=== PATIENT | male | born 1950 | race Caucasian/White ===

== ENCOUNTER 2016-12-05 07:53 | Outpatient (CLI) | payer OTHER ==
--- NOTE | 2016-12-05 12:13 | DIAGNOSTIC IMAGING REPORT ---
PROCEDURE: US VENOUS - BILATERAL EXT INDICATION: NON HEALING WOUNDS TECHNIQUE: Color Doppler duplex imaging of the deep and superficial venous system without and with compression. COMPARISON: Bilateral lower extremity venous duplex ultrasound 10/28/2012. FINDINGS: RIGHT LOWER EXTREMITY: Deep and superficial venous system of the right lower extremity is within normal limits. There is no evidence of deep vein thrombosis or superficial thrombophlebitis. LEFT LOWER EXTREMITY: Deep and superficial venous system of the left lower extremity is within normal limits. There is no evidence of deep vein thrombosis or superficial thrombophlebitis. IMPRESSION: 1. Negative venous ultrasound of the bilateral lower extremities.
--- NOTE | 2016-12-05 12:30 | DIAGNOSTIC IMAGING REPORT ---
PROCEDURE: US ART LOWER EXT WITH LILIAN-B/L INDICATION: NON HEALING WOUNDS TECHNIQUE: Preexercise ABIs were performed. The patient was unable to exercise. Color Doppler duplex imaging of the lower extremities was performed.. COMPARISON: None. FINDINGS: Technically difficult examination secondary to patient's body habitus. RIGHT LOWER EXTREMITY: ABIs: Resting ABIs: Posterior tibial: 0.5 and dorsalis pedis 0.90. VESSELS: Mild atherosclerosis. Normal triphasic wave form from the common femoral to the popliteal artery and biphasic wave form of the posterior tibial and dorsalis pedis arteries. Anterior tibial artery was not visualized. RIGHT LOWER EXTREMITY PEAK SYSTOLIC VELOCITIES: Common femoral artery: 110 cm/second. Profunda femoral artery: 77 cm/second. Proximal superficial femoral artery: 112 cm/second. Mid superficial femoral artery: 90 cm/second. Distal superficial femoral artery: 102 cm/second. Popliteal artery: 93 cm/second. Proximal posterior tibial artery: 87 cm/second. Dorsalis pedis artery: 44 cm/second. LEFT LOWER EXTREMITY: ABIs: Resting ABIs: Posterior tibial 0.64 and dorsalis pedis 0.97. VESSELS: Diffuse atherosclerosis. Normal triphasic wave form from the common femoral to the anterior tibial artery. Biphasic wave form of the posterior tibial and dorsalis pedis arteries. LEFT LOWER EXTREMITY PEAK SYSTOLIC VELOCITIES: . Common femoral artery: 85 cm/second. Profunda femoral artery: 55 cm/second. Proximal superficial femoral artery: 112 cm/second. Mid superficial femoral artery: 112 cm/second. Distal superficial femoral artery: 91 cm/second. Popliteal artery: 83 cm/second. Proximal posterior tibial artery: 45 cm/second. Proximal anterior tibial artery: 46 cm/second. Dorsalis pedis artery: 56 cm/second. IMPRESSION: 1. Technically difficult examination secondary to the patient's body habitus 2. Left lower extremity: Diffuse atherosclerosis without evidence of resting arterial insufficiency. There is trifurcation disease but no evidence of high-grade stenosis. 3. Mild atherosclerosis without evidence of resting arterial insufficiency. Anterior tibial artery was not visualized.
== END 2016-12-05 23:00 ==
LOC: US SRH 07:53
DX: I70.202 Unspecified atherosclerosis of native arteries of extremities, left leg (principal)

== ENCOUNTER 2017-02-25 16:10 | Emergency (ER) | payer OTHER ==
--- NOTE | 2017-02-25 18:08 | ED ORDER SUMMARY ---
..... Patient: ARISTEO MUÑOZ OrderSheet [facility] VisitID: [id number] [place] [address] 67y, M Registration Date/Time: 02/25/2017 ORDER SHEET Weight: 106.5 kg (stated) Allergies: Codeine, Demerol, Doxycycline Monohydrate, Penicillins GENERAL ORDERS: Abdomen 1V Upright Urgent (16:29 02/25/2017 HBivens A.R.N.P.) (Ack 16:35 AMcQuoid ER Tech1) (17:41 Renee R.N.) MEDICATION ORDERS: Glycerin (Adult) [place] 1 suppository (NOW) (16:48 02/25/2017 HBivens A.R.N.P.) (16:49 Renee R.N.) IV FLUIDS: ORDER SHEET NOTES: [Electronically signed by Nan Smith R.N. (18:21 02/25/2017)] [Electronically signed by Emmie Gooden.R.N.P. (18:48 02/25/2017)] [Electronically locked/signed by Nan Smith R.N. (18:21 02/25/2017)]
--- NOTE | 2017-02-25 18:08 | ED NURSING NOTES ---
Clinical Report - Nurses [facility] [place] [address] 02/25/2017 16:09 Patient: ARISTEO MUÑOZ TRIAGE Triage time 16:15. Acuity: LEVEL 4. Chief Complaint: ABDOMINAL PAIN and NAUSEA and (unable to have a bowel movement). Alert. No acute distress. SEPSIS SCREEN: Sepsis Screen. Negative (no infection suspected/documented). HERMINIO COMA SCORE: Herminio Coma Scale: 15- eyes open spontaneously (4); best verbal response- oriented x 4 (5); best motor response- obeys commands (6). --16:21 Nan Smith R.N. 16:14 02/25/17. BP: 142/72. HR: 90. RR: 18. O2 saturation: 94%. Temp: 98.1 F. Pain level now 8/10. --16:21 Nan Smith R.N. Weight: 106.5 kg stated. Height/Length: 72 inches Per Patient. BMI: 31.9. --16:16 Nan Smith R.N. Medications Albuterol Sulfate Inhalation 2 puffs, PRN. Combivent Inhalation 2 puffs, 4x a day. LORazepam Oral 1 mg, PRN. Nitroglycerin Translingual, as needed. --16:18 Nan Smith R.N. Lasix 40mg daily. --16:19 Nan Smith R.N. OxyCODONE HCl Oral 5 mg, as needed (maxd dose x4 daily). --16:19 Nan Smith R.N. ROPINIRole HCl Oral (Tablet 0.25 mg) 1 tablet, PRN. --16:20 Nan Smith R.N. Allergies Codeine. Demerol. Doxycycline Monohydrate. Penicillins. --16:18 Nan Smith R.N. History Arrived by EMS. Historian: patient. Unaccompanied. Primary physician (Dr. Harris). This started today. 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 See EMS report. PAST MEDICAL HX: Immunizations: up-to-date. SOCIAL HX: Light tobacco smoker (cigarette)- less than 1/2 a pack per day. Alcohol use. Patient is a recovering alcoholic. (pt. states he has not had a drink for 20 years). No drug use. No recent travel. No known contact with a sick individual. ABUSE ASSESSMENT: Abuse assessment: The patient was asked "Do you feel safe in your home?" and "Has anyone hurt you or threatened to hurt you?". No report of abuse. SELF HARM ASSESSMENT: A self harm assessment was performed. The patient answered "no" to the question "Do you have thoughts of harming or killing yourself?" and "Have you recently had thoughts about harming or killing others?". NUTRITIONAL RISK ASSESSMENT: The nutritional risk assessment revealed no deficiencies. FUNCTIONAL ASSESSMENT: Functional assessment: no impairments noted. LEARNING NEEDS ASSESSMENT: The learning needs assessment revealed no barriers. --16:21 Nan Smith R.N. PROBLEMS: Lifestyle / Substance Problems. Pedal Edema. Cellulitis. Lung Disease. Fall. Laceration. Angina. Chronic Back Pain. COPD - Chronic Obstructive Pulmonary Disease. --16:20 Nan Smith R.N. Seizure Disorder. --16:21 Nan Smith R.N. ADDITIONAL SURGERIES: Adenoidectomy. Esophageal surgery . Left wrist surgery . Tonsillectomy. --16:20 Nan Smith R.N. Interventions ID and allergy band on patient. Transported via stretcher. --16:21 Nan Smith R.N. PHYSICAL ASSESSMENT To room via stretcher. ( last normal BM: 1 week ago.). GENERAL / NEURO / PSYCH: Alert. Appears in no acute distress. HEENT: Mucous membranes are pink. RESPIRATORY: Respirations not labored. CVS: Capillary refill less than 2 seconds. GI / : Abdomen soft. Abdominal tenderness diffusely. SKIN: Skin is warm and dry. --16:22 Nan Smith R.N. NURSING PROGRESS NOTES Patient gowned. Head of bed elevated. Two patient identifiers checked. Call light placed in reach. Side rails up x 2. Bed placed in lowest position. Brakes of bed on. Patient ready for evaluation- chart flagged. --16:22 Nan Smith R.N. 16:48 02/25/2017 GLYCERIN (ADULT) [place] 1 Suppository given. Allergies verified and confirmed 5 rights. --16:49 Nan Smith R.N. Computer Programming Professor provided for the rectal exam by the physician. --16:49 Nan Smith R.N. Patient returned from radiology by stretcher with tech. --17:41 Nan Smith R.N. DISPOSITION / DISCHARGE 18:18 02/25/17. BP: 129/74. HR: 90. RR: 18. O2 saturation: 98%. Temp: 98.6 F. Pain level now 03/19. --18:19 Nan Smith R.N. Condition at departure: stable. No learning barriers present. Discharge instructions provided and reviewed with the patient. Reviewed medication(s) side effects, precautions, dosing and course information. Prescription(s) given to the patient. Reviewed referral to family practice for followup. Patient verbalized understanding. Written instructions provided in Burkinan. The patient was discharged home and unaccompanied at time of discharge. He left the Emergency Department ambulatory. Medication list reviewed and validated. --18:19 Nan Smith R.N. Departure time: 18:19. --18:19 Nan Smith R.N. Locked/Released at 02/25/2017 18:21 by Nan Smith R.N.
--- NOTE | 2017-02-25 18:08 | ED ORDER SUMMARY ---
..... Patient: ARISTEO MUÑOZ OrderSheet [facility] VisitID: [id number] [place] [address] 67y, M Registration Date/Time: 02/25/2017 ORDER SHEET Weight: 106.5 kg (stated) Allergies: Codeine, Demerol, Doxycycline Monohydrate, Penicillins GENERAL ORDERS: Abdomen 1V Upright Urgent (16:29 02/25/2017 HBivens A.R.N.P.) (Ack 16:35 AMcQuoid ER Tech1) (17:41 Renee R.N.) MEDICATION ORDERS: Glycerin (Adult) [place] 1 suppository (NOW) (16:48 02/25/2017 HBivens A.R.N.P.) (16:49 Renee R.N.) IV FLUIDS: ORDER SHEET NOTES: [Electronically signed by Nan Smith R.N. (18:21 02/25/2017)] [Electronically signed by Emmie Gooden.R.N.P. (18:48 02/25/2017)] [Electronically locked/signed by Nan Smith R.N. (18:21 02/25/2017)]
--- NOTE | 2017-02-25 18:08 | ED CLINICAL REPORT ---
Clinical Report - Physicians/Mid Levels [facility] [address] [place] [address] 02/25/2017 16:09 Patient: ARISTEO MUÑOZ Time Seen: 1620; initial patient contact, initial documentation, patient care assumed. Arrived- By private vehicle. Historian- patient. HISTORY OF PRESENT ILLNESS Chief Complaint: constipation. This started years ago, has been moderate and is still present (worse 3 days ago). The patient has had constipation and hard stools but not had dark stools or rectal bleeding or pain. No nausea, vomiting, diarrhea or abdominal pain. No recent travel. No known contact with a sick individual. Similar symptoms previously: Chronically, milder. ( has enema bag at home to help treat his constipation, hasn't used it lately, last bm was 3 days ago, very hard stool). Recent medical care: The patient was seen recently in the office. ( saw pain management the other day, says pain meds aren't really helping his back pain). REVIEW OF SYSTEMS No dizziness, fainting episodes, weakness, fever or difficulty breathing. No chest pain. No complaint of rectal foreign body. He has had no rectal intercourse. All systems otherwise negative, except as recorded above. PAST HISTORY See nurses notes. PROBLEMS: Lifestyle / Substance Problems. Pedal Edema. Cellulitis. Lung Disease. Fall. Laceration. Angina. Chronic Back Pain. COPD - Chronic Obstructive Pulmonary Disease. --16:20 Nan Smith R.N. Seizure Disorder. --16:21 Nan Smith R.N. ADDITIONAL SURGERIES: Adenoidectomy. Esophageal surgery . Left wrist surgery . Tonsillectomy. --16:20 Nan Smith R.N. SOCIAL HISTORY Light tobacco smoker. Alcohol use. Patient is a recovering alcoholic. No drug use. Not a homosexual. No recent travel. Is a local resident. FAMILY HISTORY Negative. ADDITIONAL NOTES The nursing notes have been reviewed with agreement regarding the chief complaint, HPI, ROS, PMH and patient medications and allergies. PHYSICAL EXAM Vital Signs: 02/25/2017 16:14 BP: 142/72. HR: 90. RR: 18. O2 saturation: 94%. Temp: 98.1 F. Have been reviewed as normal and appear to be correct. Appearance: Alert. Oriented X3. No acute distress. Eyes: Pupils equal, round and reactive to light. Eyes normal inspection. Neck: Normal inspection. Neck supple. CVS: Normal heart rate and rhythm. Heart sounds normal. Pulses normal. Respiratory: No respiratory distress. Breath sounds normal. Abdomen: Soft and nontender. Bowel sounds normal. No organomegaly. No mass. Moderately obese. Back: Normal inspection. Rectal: Abnormal rectal exam. Abnormal digital exam: fecal impaction. No tenderness. No mass. Normal prostate. No anal fissure. No hemorrhoids. Rectal sphincter tone not decreased. Rectal exam nontender. Stool color normal. Not unable to examine digitally. Stool heme negative; hemoccult quality control manager check passed. (POC test reference range: negative). Stool not melenic. No digital exam tenderness. Skin: Skin warm and dry. Normal skin color. No rash. Normal skin turgor. Extremities: Extremities exhibit normal ROM. No lower extremity edema. Neuro: Oriented X 3. No motor deficit. No sensory deficit. LABS, X-RAYS, AND EKG X-Rays: KUB. KUB: Increased stool present. The X-rays were independently viewed by me, interpreted by the radiologist and discussed with the radiologist. Interpretation time: 18:18. PROGRESS AND PROCEDURES Course of Care: pt has barry for frequent large quantity of narcs, last rx / morphine 15mg #126 & oxycodone 5mg #140, gets these consistently every month, and #6 er visits discussed with pt side effects of chronic pain meds, with constipation, tolerance upon rectal exam, felt a bunch of hard stool, pt agreed to manual disimpaction, attempted to disimpact pt, he couldn't tolerate all of it, but I was able to break up a bunch of the stool and make it softer 17:40 02/25/17. Trendrating reported pt is now in xray bathroom attempting bm 1757. called to bathroom, pt last extremely large bowel movement, mild streaks of blood seen in one turd, stool medium brown formed, pt pooped out approx 2 ft of stool, pt stated he felt relieved and better. Patient counseled in person regarding the patient's stable condition and diagnosis. Differential Diagnosis: Other possible considerations: sbo, constipation, substance abuse. Above considerations are based on history, physical exam, reassessment and X-Ray data. Differential diagnosis was discussed with patient. Disposition: Discharged home in good and improved condition (18:08). Condition: good and stable. CLINICAL IMPRESSION Constipation INSTRUCTIONS Drink plenty of fluids. Warnings: GENERAL WARNINGS: Return or contact your physician immediately if your condition worsens or changes unexpectedly, if not improving as expected, or if other problems arise. Specifically return if problem worsens. Prescription Medications: Miralax: take 1 measuring cupful supplied (1 heaping tablespoon) mixed in 8 ounces liquid daily as needed for constipation. Dispense fourteen (14) ounce bottle. No refill. Substitution is permissible. OTC Medications: Glycerin suppositories (available over the counter): take according to label instructions. Follow-up: Follow up with your doctor in about three days even if well. Call for an appointment. Summary of care provided to patient. Understanding of the discharge instructions verbalized by patient. (Electronically signed by Emmie Gooden A.R.N.P. 02/25/2017 18:48)
--- NOTE | 2017-02-25 18:08 | ED NURSING NOTES ---
Clinical Report - Nurses [facility] [place] [address] 02/25/2017 16:09 Patient: ARISTEO MUÑOZ TRIAGE Triage time 16:15. Acuity: LEVEL 4. Chief Complaint: ABDOMINAL PAIN and NAUSEA and (unable to have a bowel movement). Alert. No acute distress. SEPSIS SCREEN: Sepsis Screen. Negative (no infection suspected/documented). HERMINIO COMA SCORE: Herminio Coma Scale: 15- eyes open spontaneously (4); best verbal response- oriented x 4 (5); best motor response- obeys commands (6). --16:21 Nan Smith R.N. 16:14 02/25/17. BP: 142/72. HR: 90. RR: 18. O2 saturation: 94%. Temp: 98.1 F. Pain level now 8/10. --16:21 Nan Smith R.N. Weight: 106.5 kg stated. Height/Length: 72 inches Per Patient. BMI: 31.9. --16:16 Nan Smith R.N. Medications Albuterol Sulfate Inhalation 2 puffs, PRN. Combivent Inhalation 2 puffs, 4x a day. LORazepam Oral 1 mg, PRN. Nitroglycerin Translingual, as needed. --16:18 Nan Smith R.N. Lasix 40mg daily. --16:19 Nan Smith R.N. OxyCODONE HCl Oral 5 mg, as needed (maxd dose x4 daily). --16:19 Nan Smith R.N. ROPINIRole HCl Oral (Tablet 0.25 mg) 1 tablet, PRN. --16:20 Nan Smith R.N. Allergies Codeine. Demerol. Doxycycline Monohydrate. Penicillins. --16:18 Nan Smith R.N. History Arrived by EMS. Historian: patient. Unaccompanied. Primary physician (Dr. Harris). This started today. Treatment WOOD CUTTER: None. See EMS report. PAST MEDICAL HX: Immunizations: up-to-date. SOCIAL HX: Light tobacco smoker (cigarette)- less than 1/2 a pack per day. Alcohol use. Patient is a recovering alcoholic. (pt. states he has not had a drink for 20 years). No drug use. No recent travel. No known contact with a sick individual. ABUSE ASSESSMENT: Abuse assessment: The patient was asked "Do you feel safe in your home?" and "Has anyone hurt you or threatened to hurt you?". No report of abuse. SELF HARM ASSESSMENT: A self harm assessment was performed. The patient answered "no" to the question "Do you have thoughts of harming or killing yourself?" and "Have you recently had thoughts about harming or killing others?". NUTRITIONAL RISK ASSESSMENT: The nutritional risk assessment revealed no deficiencies. FUNCTIONAL ASSESSMENT: Functional assessment: no impairments noted. LEARNING NEEDS ASSESSMENT: The learning needs assessment revealed no barriers. --16:21 Nan Smith R.N. PROBLEMS: Lifestyle / Substance Problems. Pedal Edema. Cellulitis. Lung Disease. Fall. Laceration. Angina. Chronic Back Pain. COPD - Chronic Obstructive Pulmonary Disease. --16:20 Nan Smith R.N. Seizure Disorder. --16:21 Nan Smith R.N. ADDITIONAL SURGERIES: Adenoidectomy. Esophageal surgery . Left wrist surgery . Tonsillectomy. --16:20 Nan Smith R.N. Interventions ID and allergy band on patient. Transported via stretcher. --16:21 Nan Smith R.N. PHYSICAL ASSESSMENT To room via stretcher. ( last normal BM: 1 week ago.). GENERAL / NEURO / PSYCH: Alert. Appears in no acute distress. HEENT: Mucous membranes are pink. RESPIRATORY: Respirations not labored. CVS: Capillary refill less than 2 seconds. GI / : Abdomen soft. Abdominal tenderness diffusely. SKIN: Skin is warm and dry. --16:22 Nan Smith R.N. NURSING PROGRESS NOTES Patient gowned. Head of bed elevated. Two patient identifiers checked. Call light placed in reach. Side rails up x 2. Bed placed in lowest position. Brakes of bed on. Patient ready for evaluation- chart flagged. --16:22 Nan Smith R.N. 16:48 02/25/2017 GLYCERIN (ADULT) [place] 1 Suppository given. Allergies verified and confirmed 5 rights. --16:49 Nan Smith R.N. Wood Panel Inspector provided for the rectal exam by the physician. --16:49 Nan Smith R.N. Patient returned from radiology by stretcher with tech. --17:41 Nan Smith R.N. DISPOSITION / DISCHARGE 18:18 02/25/17. BP: 129/74. HR: 90. RR: 18. O2 saturation: 98%. Temp: 98.6 F. Pain level now 03/19. --18:19 Nan Smith R.N. Condition at departure: stable. No learning barriers present. Discharge instructions provided and reviewed with the patient. Reviewed medication(s) side effects, precautions, dosing and course information. Prescription(s) given to the patient. Reviewed referral to family practice for followup. Patient verbalized understanding. Written instructions provided in Mauritian. The patient was discharged home and unaccompanied at time of discharge. He left the Emergency Department ambulatory. Medication list reviewed and validated. --18:19 Nan Smith R.N. Departure time: 18:19. --18:19 Nan Smith R.N. Locked/Released at 02/25/2017 18:21 by Nan Smith R.N.
--- NOTE | 2017-02-25 18:19 | DIAGNOSTIC IMAGING REPORT ---
PROCEDURE: XR ABDOMEN 1 VIEW UPRIGHT INDICATION: CONSTIPATION TECHNIQUE: AP upright view. COMPARISON: None. FINDINGS: There is moderate gaseous distention of the small bowel and colon with moderate stool throughout the colon. No evidence of free air. Findings also suggest distended urinary bladder. Surgical clips in the epigastric region. Soft tissues and osseous structures are normal. IMPRESSION: 1. Moderate gaseous distention of the small bowel and colon with moderate stool throughout the colon. Findings is consistent with obstipation. 2. Findings suggest distention of the urinary bladder. 3. Findings discussed with HAKEEM Camacho.
--- NOTE | 2017-02-25 18:49 | ED MED RECONCILIATION SUMMARY ---
Patient: ARISTEO MUÑOZ Medication Reconciliation Report [facility] VisitID: [id number] [place] [address] 67y, M Registration Date/Time: 02/25/2017 Weight: 106.5 kg Height/Length: 72 in. BMI: 31.9 ALLERGIES: Codeine, Demerol, Doxycycline Monohydrate, Penicillins The patient's Home Medications are listed below: THE FOLLOWING MEDICATIONS NEED TO BE RECONCILED: Albuterol Sulfate Inhalation 2 puffs, PRN Combivent Inhalation 2 puffs, 4x a day Lasix 40mg daily LORazepam Oral 1 mg, PRN Nitroglycerin Translingual OxyCODONE HCl Oral 5 mg, maxd dose x4 daily ROPINIRole HCl Oral (0.25 mg) 1 tablet, PRN The source(s) of the original Home Medication information: Not obtained. The following Medications were given to the patient in the Emergency Department: GLYCERIN (ADULT) [MA] MA 1 Suppository, administered: 02/25/2017 4:48:00 PM The following Medications were prescribed to the patient: Glycerin suppositories (available over the counter): take according to label instructions. -- Emmie Gooden A.R.N.P. Miralax: take 1 measuring cupful supplied (1 heaping tablespoon) mixed in 8 ounces liquid daily as needed for constipation. Dispense fourteen (14) ounce bottle. No refill. Substitution is permissible. -- Emmie Gooden A.R.N.P.
--- NOTE | 2017-02-25 18:49 | ED MAR SUMMARY ---
..... Medication Administration Record [facility] [address] [place] [address] Patient: ARISTEO MUÑOZ Visit ID: [id number] 67y, M Weight: 106.5 kg Height/Length: 72 in BMI: 31.9 ALLERGIES: Codeine, Demerol, Doxycycline Monohydrate, Penicillins Given 16:48 02/25/2017 Nan Smith R.N. Medication Administered: GLYCERIN (ADULT) [MS], Dose: 1 Suppository MS. Medication Ordered: Glycerin (Adult) [place] 1 suppository (NOW).
--- NOTE | 2017-02-25 18:49 | ED DISCHARGE INSTRUCTIONS ---
Patient: ARISTEO MUÑOZ General Instructions [facility] VisitID: [id number] [place] [address] 67y, M Registration Date/Time: 02/25/2017 Constipation INSTRUCTIONS Drink plenty of fluids. Warnings: GENERAL WARNINGS: Return or contact your physician immediately if your condition worsens or changes unexpectedly, if not improving as expected, or if other problems arise. Specifically return if problem worsens. Prescription Medications: Miralax: take 1 measuring cupful supplied (1 heaping tablespoon) mixed in 8 ounces liquid daily as needed for constipation. Dispense fourteen (14) ounce bottle. No refill. Substitution is permissible. OTC Medications: Glycerin suppositories (available over the counter): take according to label instructions. Follow-up: Follow up with your doctor in about three days even if well. Call for an appointment. Summary of care provided to patient. Understanding of the discharge instructions verbalized by patient. ADDITIONAL INFORMATION Constipation (Adult) Constipation is bowel movements that are less frequent than usual. Stools often become very hard and difficult to pass. This may lead to abdominal pain and bloating. It may also cause painful bowel movements. Constipation may be due to a diet thats low in fiber. Some medications, especially pain medications, can also cause it. Constipation may be treated with enemas, suppositories, laxatives or stool softeners. Your doctor will advise you which will work best for you. Follow the advice below to help avoid this problem in the future. Home Care Medication: Take any medicines as directed. Some laxatives are safe only for occasional use. Others can be taken on a regular basis. Talk to your doctor or pharmacist if you have questions. General Care: Prescription pain medications can cause constipation. If you are prescribed pain medications, ask the doctor whether you should also take a stool softener. A diet high in fiber with plenty of fluids helps to maintain regular, soft bowel movements. The following foods are good sources of dietary fiber: Cereals and breads: Whole grain cereal with bran, oatmeal, rolled oats, whole grain breads Fruits: All fruits (fresh and dried), raisins, prunes, apricots, berries, figs Vegetables: Any fresh vegetables, especially peas, broccoli, brussels sprouts, winter squash, green beans, cauliflower, brady beans, carrots Other: Popcorn, brown rice Drink plenty of water when you increase the amount of fiber you eat. Follow Up with your doctor or return to this facility if symptoms do not improve in the next few days. You may require further tests or a referral to a specialist. Get Prompt Medical Attention if any of the following occur: Fever over 100.4F (38C) Failure to resume normal bowel movements Increasing abdominal or back pain Nausea or vomiting Abdominal swelling Blood in the stool Weakness, dizziness or fainting Unexpected vaginal bleeding Fecal Impaction (Treated) Fecal Impaction is a severe form of constipation. There is a large amount of hard stool in the rectum that cannot be passed. Although your impaction has been relieved, it may be necessary to continue treatment at home as advised by your doctor. Follow the advice below to help avoid this problem in the future. Home Care Medication: Take any medicines as directed. Some laxatives are safe only for occasional use. Others can be taken on a regular basis. Talk to your doctor or pharmacist if you have questions. General Care: Prescription pain medications can cause constipation. If you are prescribed pain medications, ask the doctor whether you should also take a stool softener. A diet high in fiber with plenty of fluids helps to maintain regular, soft bowel movements. The following foods are good sources of dietary fiber: Cereals and breads: Whole-grain cereal with bran, oatmeal, rolled oats, whole-grain breads Fruits: All fruits (fresh and dried), raisins, prunes, apricots, berries, figs Vegetables: Any fresh vegetables, especially peas, broccoli, brussels sprouts, winter squash, green beans, cauliflower, brady beans, carrots Other: Popcorn, brown rice Drink plenty of water when you increase the amount of fiber you eat. Follow Up with your doctor or return to this facility if symptoms do not improve in the next few days. You may require further tests or a referral to a specialist. Get Prompt Medical Attention if any of the following occur: Fever over 100.4F (38C) Failure to resume normal bowel movements Increasing abdominal or back pain Nausea or vomiting Abdominal swelling Blood in the stool Weakness, dizziness or fainting Unexpected vaginal bleeding High Fiber Diet Fiber is present in all fruits, vegetables, cereals and grains. Fiber passes through the body undigested. A high fiber diet helps food move through the intestinal tract. The added bulk is helpful in preventing constipation. In people with diverticulosis it serves to clean out the pouches along the colon wall while preventing new ones from forming. A high fiber diet also reduces the risk of colon cancer, decreases blood cholesterol and prevents high blood sugar in people with diabetes. The foods listed below are high in fiber and should be included in your diet. If you are not used to high fiber foods, start with 1 or 2 foods from this list. Every 3-4 days add a new one to your diet until you are eating 4 high fiber foods per day. This should give you 20-35 Gm of fiber/day. It is also important to drink a lot of water when you are on this diet (6-8 glasses a day). Water causes the fiber to swell and increases the benefit. Foods High In Dietary Fiber: BREADS: Made with 100% whole wheat flour; og, wheat or rye crackers; tortillas, bran muffins CEREALS: Whole grain cereal with bran (Chex, Raisin Bran, [place] Bran), oatmeal, rolled oats, granola, wheat flakes, brown rice NUTS: Any nuts FRUITS: All fresh fruits along with edible skins, (bananas, citrus fruit, mangoes, pears, prunes, raisins, apples, pineapple, apricot, melon, jams and marmalades), fruit juices (especially prune juice) VEGETABLES: All types, preferably raw or lightly cooked: especially, celery, eggplant, potatoes,spinach, broccoli, brussel sprouts, winter squash, carrots, cauliflower, soybeans, lentils, fresh and dried beans of all kinds OTHER: Popcorn, any spices You have been given the following additional information: Constipation (Adult) Fecal Impaction, Treated Diet, High Fiber (Electronically signed by Emmie Gooden A.R.N.P. 02/25/2017 18:48)
--- NOTE | 2017-02-25 18:49 | ED MED RECONCILIATION SUMMARY ---
Patient: ARISTEO MUÑOZ Medication Reconciliation Report [facility] VisitID: [id number] [place] [address] 67y, M Registration Date/Time: 02/25/2017 Weight: 106.5 kg Height/Length: 72 in. BMI: 31.9 ALLERGIES: Codeine, Demerol, Doxycycline Monohydrate, Penicillins The patient's Home Medications are listed below: THE FOLLOWING MEDICATIONS NEED TO BE RECONCILED: Albuterol Sulfate Inhalation 2 puffs, PRN Combivent Inhalation 2 puffs, 4x a day Lasix 40mg daily LORazepam Oral 1 mg, PRN Nitroglycerin Translingual OxyCODONE HCl Oral 5 mg, maxd dose x4 daily ROPINIRole HCl Oral (0.25 mg) 1 tablet, PRN The source(s) of the original Home Medication information: Not obtained. The following Medications were given to the patient in the Emergency Department: GLYCERIN (ADULT) [MD] MD 1 Suppository, administered: 02/25/2017 4:48:00 PM The following Medications were prescribed to the patient: Glycerin suppositories (available over the counter): take according to label instructions. -- Emmie Gooden A.R.N.P. Miralax: take 1 measuring cupful supplied (1 heaping tablespoon) mixed in 8 ounces liquid daily as needed for constipation. Dispense fourteen (14) ounce bottle. No refill. Substitution is permissible. -- Emmie Gooden A.R.N.P.
--- NOTE | 2017-02-25 18:49 | ED MAR SUMMARY ---
..... Medication Administration Record [facility] [address] [place] [address] Patient: ARISTEO MUÑOZ Visit ID: [id number] 67y, M Weight: 106.5 kg Height/Length: 72 in BMI: 31.9 ALLERGIES: Codeine, Demerol, Doxycycline Monohydrate, Penicillins Given 16:48 02/25/2017 Nan Smith R.N. Medication Administered: GLYCERIN (ADULT) [TX], Dose: 1 Suppository TX. Medication Ordered: Glycerin (Adult) TX 1 suppository (NOW).
== END 2017-02-25 18:19 | disposition home or self-care (01) ==
LOC: ED SRH 16:10
DX: K59.00 Constipation, unspecified (principal); J44.9 Chronic obstructive pulmonary disease, unspecified; Z72.0 Tobacco use; Z79.51 Long term (current) use of inhaled steroids; Z79.891 Long term (current) use of opiate analgesic; Z79.899 Other long term (current) drug therapy; Z88.5 Allergy status to narcotic agent; Z88.0 Allergy status to penicillin